=== PATIENT | female | born 2005 | race Caucasian/White ===

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

== ENCOUNTER 2023-06-16 18:25 | Emergency (ER) | payer OTHER, SELFPAY ==
--- NOTE | ~2023-06-16 | CT_ITS ---
EXAMINATION: CT SOFT TISSUE NECK WITH CONTRAST CLINICAL INFORMATION: l tonsil swelling COMPARISON: None. TECHNIQUE: Following the administration of 60 mL of Omnipaque 350 intravenous contrast, helical imaging was performed in the axial plane with generation of coronal and sagittal reformatted images. This CT examination was performed using dose optimization techniques as appropriate, variously including the following: *Automated exposure control. *Adjustment of mA and/or kV according to patient size (this includes techniques or standardized protocols for targeted exams where dose is matched to indication/reason for exam; i.e. extremities or head). *Use of iterative reconstruction technique. DLP: 407 mGy-cm. FINDINGS: Asymmetric enlargement of the left palatine tonsil measuring up to 2.9 x 2.6 by. No evidence of peritonsillar abscess or deep neck space infection. There are prominent soft tissues at the tongue base which partially fill the vallecula Nasopharynx/skull base: The fat planes of the skull base and soft tissues of the nasopharynx are unremarkable. The paranasal sinuses and mastoid air cells are well aerated. The temporomandibular joints are normal. Suprahyoid neck: The oral cavity and bilateral salivary gland tissues are unremarkable. Infrahyoid neck: The hypopharynx and larynx are unremarkable. No aerodigestive tract mass. Thyroid: The thyroid gland is normal. Lymph nodes: There is an enlarged left level 2A cervical lymph node measuring up to 2.0 cm short axis as well as prominent but nonpathologic enlarged bilateral level 2 and level 3 cervical lymph nodes, presumably reactive. Lung apices: The partially visualized lung apices are clear. There is some prominent soft tissue in the anterior superior mediastinum, likely representing thymic tissue. Vascular structures: No hemodynamically significant stenosis, dissection, or occlusion. Osseous structures: The osseous structures are intact without suspicious focal lesion. Other: The imaged portions of the brain parenchyma are unremarkable. CT/CT soft tissue neck w IV con IMPRESSION: 1. Asymmetric enlargement of the left palatine tonsil, compatible with tonsillitis in the acute/infectious setting. No evidence of peritonsillar abscess or deep neck space infection. 2. Enlarged left level 2A cervical lymph node and prominent but nonpathologic enlarged bilateral level 2 and level 3 cervical lymph nodes, presumably reactive. 3. Prominent soft tissues at the tongue base, most likely reflecting lymphoid hyperplasia. Correlate with direct inspection. Please note that in the noninfectious setting, a left tonsillar mass with metastatic lymphadenopathy would appear similar. Correlate with clinical history.
[2023-06-16 19:04] LABS: IDNOW Serial# 08D9AD1C; Strep A Nucleic Acid Positive (Negative)
[2023-06-16 19:06] VITALS: BP 130/79; PULSE 118; RESP 19; TEMP 37.2; O2SAT 99; BMI 32.2
--- NOTE | 2023-06-16 19:12 | ED.GENADULT ---
HPI - General Adult General Chief complaint: Upper Respiratory Symptoms Stated complaint: Sore throat Time Seen by Provider: 06/16/23 21:30 Source: patient and family Mode of arrival: ambulatory Limitations: no limitations History of Present Illness HPI narrative: 17 yo female with hx of recurrent tonsillitis and chronic sore throat told by her doctor to not use listerine comes in with c/o 3 days of worsening symptoms. She denies seeing ENT. No fevers noted. MD complaint: sore throat Onset (ago): day(s) (3) Location: mouth Radiation: non-radiation Severity: moderate Quality: aching Pain Consistency: constant Relieving factors: none Exacerbating factors: other (swallowing) Associated symptoms: denies other symptoms Treatments prior to arrival: none Related Data Previous Rx's ?Medication ?Instructions ?Recorded ibuprofen 600 mg tablet 600 mg PO Q6H PRN pain #20 tabs 07/19/22 amoxicillin 500 mg capsule 500 mg PO BID 10 days #20 caps 06/17/23 Allergies Allergy/AdvReac Type Severity Reaction Status Date / Time No Known Allergies Allergy Verified 06/16/23 19:11 Review of Systems Review of Systems: Constitutional : No Fever, No Chills, No Fatigue ENT/Mouth : pos sore throat, No Rhinorrhea Eyes: No Eye Pain, No Swelling, No Redness Cardiovascular : No Chest Pain, No SOB, No Dyspnea on Exertion Respiratory : No Cough, No Sputum Gastrointestinal : No Nausea, No Vomiting, No Diarrhea, No abdominal Pain Genitourinary : No Dysuria, No Urinary Frequency, No Hematuria, Musculoskeletal : No joint pain, No Myalgias, No Joint Swelling Skin : No Skin Lesions, No rash Neuro : No Weakness, No Numbness, No Dizziness, no Headache Psych : No Anxiety/Panic, No Depression Heme/Lymph: No Bruising, No Bleeding, pos Lymphadenopathy All other systems reviewed and are negative [facility], [facility] Past Medical History Attestation statement: The following information was validated with the patient. Source: old records reviewed Medical History Tonsillitis Social History Social History (Updated 06/16/23 @ 22:01 by Caitlin Hale DO) Patient Tobacco Use Status: Never used Tobacco Advance Directives: No Advance Directives Information Provided: No Do you have a plan to hurt others: No Plan Physical Exam ED Vital Signs: Vital Signs - 24 hr 06/16/23 19:06 06/17/23 00:32 Temperature 99.0 F 98.7 F Pulse Rate 118 H 93 Respiratory Rate 19 16 Blood Pressure 130/79 118/76 Pulse Oximetry 99 99 Oxygen Delivery Method Room Air Room Air BMI result Body Mass Index 32.2 Appearance: Alert. Oriented X3. No acute distress. Eyes: Pupils equal, round and reactive to light. ENT: Pharynx L sided tonsil moderate swelling with exudates uvula is midline normal voice no drooling Neck: Normal inspection. mild L ant cervical lympadenopathy CVS: Normal heart rate and rhythm. Pulses normal. Respiratory: No respiratory distress. Breath sounds normal. Abdomen: Soft and nontender. Skin: Skin warm and dry. Normal skin color. Normal skin turgor. Extremities: No lower extremity edema. No calf ttp Neuro: Oriented X 3. No motor deficit. No sensory deficit. Course Course Course Narrative: This is an RME: Additional HPI, ROS, PE not included below will be deferred to primary provider. 17 yo f presents w/ severe sore throat and difficultly swallowing X 3 days. no sick contacts at home. PCP told her to stop using listernine Medications Administered Discontinued Medications Generic Name Dose Route Start Last Admin Trade Name Freq PRN Reason Stop Dose Admin Dexamethasone Sodium Phosphate 10 mg 06/16/23 19:11 06/16/23 22:13 Dexamethasone Sod Phosphate 10 Mg/Ml Vial IVPUSH 06/16/23 19:12 10 mg ONCE ONE Administration Sodium Chloride 1,000 mls @ 999 mls/hr 06/16/23 21:30 06/16/23 22:06 Ns IV 06/16/23 22:30 999 mls/hr .Q1H1M ONE Administration Ceftriaxone Sodium 2 gm/ 50 mls @ 100 mls/hr 06/16/23 23:50 06/17/23 00:02 Sodium Chloride IV 06/17/23 00:19 100 mls/hr ONCE ONE Administration Iohexol 100 ml 06/16/23 22:51 06/16/23 22:51 Iohexol 350 Mg/Ml 100 Ml Infus..Btl IV 06/16/23 22:52 60 ml ONCE ONE Administration Ketorolac Tromethamine 15 mg 06/16/23 21:30 06/16/23 22:13 Ketorolac Tromethamine 15 Mg/Ml Vial IVPUSH 06/16/23 21:31 15 mg ONCE ONE Administration Medical Decision Making Medical Decision Making [facility] Narrative: 17 yo female with PMH of tonsillitis here with c/o sore throat x 3 days now with L sided tonsil swelling at this time will need labs, strep swab, CT scan for mass/DOOR [employer] and IV steroids/toradol Differential Diagnosis Differential Diagnoses: The differential diagnosis associated with the presentation includes DO[employer], mass, tonsillitis Admission/Observation Consideration of admission/observation: Escalation of care including admission/observation considered feels better no DOOR [employer]OR stable for DC Lab Data [facility] Lab Attestation statement: I reviewed the patient's lab results. 06/16/23 21:51 06/16/23 21:51 Labs: Lab Results 06/16/23 06/16/23 Range/Units 18:46 21:51 WBC 17.0 H (4.8-10.8) X10*3/uL RBC 4.80 (4.20-5.50) X10*6/uL Hgb 11.2 L (12.0-16.0) g/dl Hct 34.3 L (37.0-47.0) % MCV 71.5 L (80.0-98.0) fL MCH 23.3 L (27.0-33.0) pg MCHC 32.7 (31.0-35.0) g/dl RDW 16.8 H (11.0-16.0) % Plt Count 454 H (160-400) X10*3/uL MPV 10.2 (9.4-12.3) fL Immature Gran % (Auto) 0.4 (0.0-0.4) % Neut % (Auto) 80.0 H (45-73) % Lymph % (Auto) 8.1 L (20-40) % [place] % (Auto) 7.0 (2-11) % Eos % (Auto) 4.0 (0-4) % Baso % (Auto) 0.5 (0-2) % Lymph # (Auto) 1.4 (1.2-4.9) X10*3/uL [place] # (Auto) 1.2 (0.1-1.2) X10*3/uL Eos # (Auto) 0.7 H (0.0-0.4) X10*3/uL Baso # (Auto) 0.1 (0.0-0.2) X10*3/uL Abs Immat Gran (auto) 0.07 H (0.00-0.03) X10*3/uL Absolute Neuts (auto) 13.6 H (2.0-8.3) x10*3/uL Absolute Nucleated RBC 0.000 (0.0-0.012) X10*3/uL Nucleated RBC % (auto) 0.0 (0.0-0.2) /100WBC Sodium 138 (135-145) mmol/L Potassium 3.7 (3.3-5.1) mmol/L Chloride 104 (96-108) mmol/L Carbon Dioxide 21 L (22-29) mmol/L Anion Gap 17 (12-20) BUN 10 (9-16) mg/dL Creatinine 0.72 (0.5-1.4) mg/dL Estim Creat Clear Calc 104.0 Estimated GFR > 60 Random Glucose 92 (60-115) mg/dL Calcium 9.9 (8.4-10.2) mg/dL Beta HCG, Quant < 2 mIU/mL Influenza Type A (PCR) NEGATIVE (Negative) Influenza Type B (PCR) NEGATIVE (Negative) RSV RNA Qual (PCR) NEGATIVE (Negative) SARS-CoV-2 RNA (RT-PCR) NEGATIVE (Negative) S. pyogenes GrpA ELVIS Positive A (Negative) Independent Interpretation I performed an independent interpretation of an: CT Scan (no DOOR [employer] SE[employer]ING [employer]OR) Radiology Impression Discussion of test interpretation with radiology: I have reviewed the radiologist's reading. Independent Historian Clinical information obtained from an independent historian. History obtained from or confirmed by: Parent Discharge Plan Discharge Clinical Impression: Acute tonsillitis, Acute streptococcal pharyngitis Patient Disposition: Home, Self-Care Instructions: Strep Throat (ED), Tonsillitis (ED) Additional Instructions: return for worsening symptoms no improvement in 48 hours or any other concerns. finish all antibiotics. Prescriptions: New amoxicillin 500 mg capsule 500 mg PO BID 10 Days Qty: 20 0RF No Action ibuprofen 600 mg tablet 600 mg PO Q6H PRN (Reason: pain) Qty: 20 0RF Stand Alone Forms: Work/School Release Print Language: Mohawk
[2023-06-16 19:51] LABS: Influenza A PCR NEGATIVE (Negative); Influenza B PCR NEGATIVE (Negative); Resp Syncy Virus RNA Qual PCR NEGATIVE (Negative); SARS COV2 PCR INHOUSE NEGATIVE (Negative)
[2023-06-16 21:54] LABS: MANUAL DIFF FLAG NO
[2023-06-16 21:56] LABS: Basophils Absolute Auto 0.1 X10*3/uL (0.0-0.2); Basophils Percent Auto 0.5 % (0-2); Eosinophils Absolute Auto 0.7 X10*3/uL (0.0-0.4); Hematocrit 34.3 % (37.0-47.0); Hemoglobin 11.2 g/dl (12.0-16.0); Imm Gran Abs Auto 0.07 X10*3/uL (0.00-0.03); Imm Gran Pct Auto 0.4 % (0.0-0.4); Lymphocytes Absolute Auto 1.4 X10*3/uL (1.2-4.9); Lymphocytes Percent Auto 8.1 % (20-40); Mean Corpuscular HGB Conc 32.7 g/dl (31.0-35.0); Mean Corpuscular Hemoglobin 23.3 pg (27.0-33.0); Mean Corpuscular Volume 71.5 fL (80.0-98.0); Mean Platelet Volume 10.2 fL (9.4-12.3); Monocytes Absolute Auto 1.2 X10*3/uL (0.1-1.2); Neutrophils Absolute Auto 13.6 x10*3/uL (2.0-8.3); Platelet Count 454 X10*3/uL (160-400); Red Cell Distribution Width 16.8 % (11.0-16.0)
[2023-06-16] MEDS: 0.9 % Sodium Chloride 1,000 ML 999 ML IV (22:06)
[2023-06-16] MEDS: Ketorolac Tromethamine 15 MG/ML VIAL IVPUSH (22:13)
[2023-06-16] MEDS: dexAMETHasone sod phosphate 10 MG/ML VIAL IVPUSH (22:13)
[2023-06-16 22:34] LABS: Anion Gap 17 (12-20); Blood Urea Nitrogen 10 mg/dL (9-16); Calcium 9.9 mg/dL (8.4-10.2); Carbon Dioxide 21 mmol/L (22-29); Chloride 104 mmol/L (96-108); Estimated Glomerular Filt Rate > 60; Glucose Random 92 mg/dL (60-115); HCG Quantitative < 2 mIU/mL; Potassium 3.7 mmol/L (3.3-5.1); Sodium 138 mmol/L (135-145)
[2023-06-16] MEDS: iohexoL 350 MG/ML 100 ML INFUS..BTL IV (22:51)
[2023-06-17] MEDS: cefTRIAXone sodium 2 GM in 0.9 % Sodium Chloride 50 ML IV (00:02)
--- NOTE | 2023-06-17 00:03 | PC.NURSE ---
provider, dee dee loaiza, declined blood cultures
[2023-06-17 00:32] VITALS: BP 118/76; PULSE 93; RESP 16; TEMP 37.1; O2SAT 99
[2023-06-17 00:59] VITALS: BP 118/76; PULSE 93; RESP 16; TEMP 37.1; O2SAT 99
== END 2023-06-17 01:00 | disposition home or self-care (01) ==
PROVIDERS: Physician Assistant; Emergency Provider Emergency Medicine
DX: J02.0 Streptococcal pharyngitis (principal); Z79.899 Other long term (current) drug therapy; Z11.52 Encounter for screening for COVID-19; Z20.822 Contact with and (suspected) exposure to COVID-19
CPT/HCPCS: 0241U; 36415; 70491; 80048; 84702; 85025; 87651; 96374; 96375; 99284; J0696; J1100; J1885; Q9967

== ENCOUNTER 2024-11-10 07:56 | Emergency (ER) | payer OTHER, SELFPAY ==
--- NOTE | ~2024-11-10 | XR_ITS ---
EXAMINATION: XR CHEST CLINICAL INFORMATION: cough COMPARISON: None available. TECHNIQUE: 2 views of the chest were obtained. FINDINGS: The cardiac, hilar, and mediastinal contours are normal. The lungs are clear bilaterally. There is no pneumothorax or pleural effusion. There is no focal osseous or soft tissue abnormality. XR/XR chest 2V IMPRESSION: Normal chest. Electronically signed by: Michele Gorman MD 11/10/2024 09:20 AM EDT
--- NOTE | 2024-11-10 08:10 | ED_ITS ---
HPI - General Adult General Chief complaint: Upper Respiratory Symptoms Stated complaint: swollen tonsils Time Seen by Provider: 11/10/24 08:06 Source: patient Mode of arrival: ambulatory Limitations: no limitations History of Present Illness ED Provider: Lyn Dyer PA-C HPI narrative: Patient is a 19 year old assigned female at with no reported medical history presenting to the emergency department today with a sore throat, swollen tonsils, and a dry cough. Patient states that over the last 2 days she has been having a sore throat, tonsilar pain, and a cough. Patient denies any other complaints at this time. Onset (ago): day(s) (2) Related Data Previous Rx's ?Medication ?Instructions ?Recorded ibuprofen 600 mg tablet 600 mg PO Q6H PRN pain #20 t abs 07/19/22 amoxicillin 500 mg capsule 500 mg PO BID 10 days #20 c aps 06/17/23 amoxicillin 875 mg tablet 875 mg PO BID 10 days #20 ta bs 11/10/24 Allergies Allergy/AdvReac Type Severity Reaction Status Date / Time No Known Allergies Allergy Verified 11/10/24 08:17 Review of Systems Constitutional: Constitutional: Reports as per HPI Eyes: Eyes: Reports as per HPI ENT: Reports as per HPI Cardiovascular: Cardiovascular: Reports as per HPI Respiratory: Respiratory: Reports as per HPI Gastrointestinal: Gastrointestinal: Reports as per HPI Genitourinary: Genitourinary: Reports as per HPI Musculoskeletal: Musculoskeletal: Reports as per HPI Integumentary/Breasts: Skin/Breast: Reports as per HPI Neurologic: Reports as per HPI Psychiatric: Psychiatric: Reports as per HPI Endocrine: Endocrine: Reports as per HPI Hematologic/Lymphatic: Hematologic/Lymphatic: Reports as per HPI Allergic/Immunologic: Allergic/Immunologic: Reports as per HPI [facility] Past Medical History Attestation statement: The following information was validated with the patient. Source: old records reviewed and nursing notes reviewed Medical History Tonsillitis Social History Social History Patient Tobacco Use Status: Never used Tobacco Smoked in Last 30 Days: No Use of substances other than those prescribed or required for medical reasons: No Advance Directives: No Advance Directives Information Provided: Yes Do you have a plan to hurt others: No Plan Patient : No Physical Exam ED Vital Signs: Vital Signs - 24 hr 11/10/24 08:15 11/10/24 08:19 11/10/24 08:19 Temperature 98.2 F 98.2 F Pulse Rate 105 H 105 H Respiratory Rate 18 18 Blood Pressure 129/82 129/82 Pulse Oximetry 97 97 97 Oxygen Delivery Method Room Air Room Air Room Air 11/10/24 09:31 Temperature 0 F L Pulse Rate 107 H Respiratory Rate 18 Blood Pressure 123/84 Pulse Oximetry 100 Oxygen Delivery Method Room Air BMI result Body Mass Index 35.3 Const General: cooperative, no acute distress, alert and awake Nutritional Appearance: well nourished Orientation/consciousness: patient oriented x3 HENMT Head: Yes normal to inspection and Yes atraumatic Ears: hearing grossly normal bilaterally and external ears normal General nose exam: Normal external nose present, no nasal discharge noted and no epistaxis Face and sinus: Yes normal facial exam, No abrasion and No laceration Mouth: Normal oral and palatal mucosa present, no drooling and no muffled voice Throat: Yes uvula midline, Yes abnormal tonsil (left tonsillar exudates, swelling, erythema) and No uvula laterally displaced Eyes General: appearance normal, both eyes and all related structures Periorbital: periorbital findings normal Eyelids: Yes eyelids normal Conjunctivae: conjunctivae normal Pupils: Equal, round and reactive pupils present EOM: EOMs intact bilaterally Neck Neck: Yes normal visual inspection and Yes full ROM Resp Effort & Inspection: normal respiratory effort and able to speak in complete sentences Neuro General: patient oriented x3, moves all extremities and CN's II-XI intact bilaterally Cranial nerves: Yes Equal, round and reactive pupils present Cognition (Neuro): normal cognition Extrem General: Yes normal to inspection, Yes full ROM and Yes capillary refill normal Psych Appearance: grossly normal Mental Status: mental status grossly normal Affect: normal affect Attitude: cooperative Thought process: Normal thought process present Thought content: Normal thought content present Insight: Good insight present (Psych) Medical Decision Making Medical Decision Making MDM Narrative: Patient is a 19 year old assigned female at with no reported medical history presenting to the emergency department today with a sore throat, swollen tonsils, and a dry cough. Patient's physical exam was as noted in the physical exam portion of this note and consistent with pharyngitis. Uvula midline, no shift. Patient's voice normal, not hoarse. Patient's strep, COVID-19, and influenza testing was negative. Patient's chest x-ray showed no acute process. Given patient's physical exam findings - will treat for pharyngitis. I explained my physical exam findings as well as all test results to the patient. I answered all questions asked by the patient. I stressed the importance of the patient taking her medication as directed (either prescribed or as the over the counter packaging recommends). I stressed the importance of the patient following up with her primary care provider. I stressed the importance of the patient returning to the emergency department immediately if her symptoms were to worsen or if she were to develop any dizziness, shortness of breath, difficulty breathing, chest pain, blurry vision, loss of vision, nausea, vomiting, abdominal pain, fever, chills, back pain, or any other complaints. Patient verbalized agreement and understanding with this treatment plan and discharge. Differential Diagnosis Differential Diagnoses: The differential diagnosis associated with the presentation includes Strep pharyngitis COVID-19 Influenza Admission/Observation Consideration of admission/observation: Escalation of care including admission/observation considered Patient would have been admitted to the hospital had her work up had any findings where hospital admission was appropriate and her clinical presentation warranted hospital admission. Lab Data [facility] Lab Attestation statement: I reviewed the patient's lab results. My interpretation of these results are in the [facility] Rationale portion of this note. Labs: Lab Results 11/10/24 Range/Units 08:26 COVID-19 (MARTHA) Negative (Negative) COVID-19 Clin Com See Note Influenza Type A (ELVIS) Negative (Negative) Influenza Type B (ELVIS) Negative (Negative) Influenza A & B Note See Note S. pyogenes GrpA ELVIS Negative (Negative) Independent Interpretation I performed an independent interpretation of an: Plain X-Ray Interpretation: My interpretation is in agreement with the radiologist's impression of this imaging study. Reason for Exam: cough EXAMINATION: XR CHEST CLINICAL INFORMATION: cough COMPARISON: None available. TECHNIQUE: 2 views of the chest were obtained. FINDINGS: The cardiac, hilar, and mediastinal contours are normal. The lungs are clear bilaterally. There is no pneumothorax or pleural effusion. There is no focal osseous or soft tissue abnormality. XR/XR chest 2V IMPRESSION: Normal chest. Electronically signed by: Michele Gorman MD 11/10/2024 09:20 AM EDT RP Dictated By: Michele Gorman MD Signed By: Electronically signed by Michele Gorman MD 11/10/24 0920 Radiology Impression Discussion of test interpretation with radiology: I have reviewed the radiologist's reading. Prescription Management I considered prescription management with: Antibiotic (patient prescribed an antibiotic for pharyngitis) Discharge Plan Discharge Clinical Impression: Pharyngitis Qualifiers: Pharyngitis/tonsillitis etiology: other specified organisms Qualified Code(s): J02.8 - Acute pharyngitis due to other specified organisms Patient Disposition: Home, Self-Care Instructions: Pharyngitis (ED) Additional Instructions: Your COVID-19, influenza, and strep tests were negative however, your exami nation is concerning for pharyngitis (a throat infection). I have prescribed an antibiotic, please take it. THROW AWAY YOUR TOOTHBRUSH AND USE A NEW ONE 24 HOURS AFTER YOU HAVE STARTED THE ANTIBIOTIC. This will help stop recurrence of infection. IF you are prescribed home medications and/or you are taking over the counter medications at home - it is very important you continue to do so as prescribed / directed unless told otherwise. Follow up with a primary care provider. Return to the emergency department immediately if your symptoms worsen or if you develop any numbness, tingling, dizziness, shortness of breath, difficulty breathing, chest pain, blurry vision, loss of vision, nausea, vomiting, abdominal pain, fever, chills, back pain, or any other complaints. If you do not have a primary care provider - call any of the below numbers to establish and follow up with a primary care provider. [facility] Primary [facility] ([place]) [phone] [place] [address] [place], [address] [facility] Primary Care ([address] [place]) [phone] [address] [facility], [address] [place], [address] [facility] Primary Care ([address] [place]) [phone] [place] [address], [address] [place], [address] [facility] Primary Care ([place]) [phone] [place] [address] [address] [facility] [place], [address] [facility] Family Medicine [phone] [address] [facility], [address] Please see the information below about our Patient Portal. If you are not yet enrolled in the [facility] Patient Portal, you will receive an enrollment email invitation following your visit to any [facility] setting. You may also self-enroll in the Patient Portal by visiting our website: [email or web address] The following information is required to access the Patient Portal: - Your [facility] Medical Record Number - Your personal home email address (must match what is in your electronic medical record, Registration staff can assist with this) - Name - Date of Capabilities of the Patient Portal: - Message some providers - View upcoming appointments - Access your health summary, medical history, and visit history - View current conditions and allergies - View procedure and lab results - View your medications, including guidelines, side effects, and precautions - Complete pre-appointment questionnaires requested by your provider - Ready summary reports of your office visits and procedures To access the Patient Portal Mobile Bart, follow these directions: - Search [employer] in the Bart Store or [employer] Store - Download the Bart - Search for [facility] - Enter your login/password Prescriptions: New amoxicillin 875 mg tablet 875 mg PO BID 10 Days Qty: 20 0RF No Action amoxicillin 500 mg capsule 500 mg PO BID 10 Days Qty: 20 0RF ibuprofen 600 mg tablet 600 mg PO Q6H PRN (Reason: pain) Qty: 20 0RF Stand Alone Forms: Work/School Release Interventions: ED Discharge Assessment Last Done: 11/10/24 09:31 Discharge Date/Time: 11/10/24 09:33 Print Language: Spanish
[2024-11-10 08:15] VITALS: BP 129/82; PULSE 105; RESP 18; TEMP 36.8; O2SAT 97; BMI 35.3
[2024-11-10 08:19] VITALS: BP 129/82; PULSE 105; RESP 18; TEMP 36.8; O2SAT 97
--- NOTE | 2024-11-10 08:22 | PC.NURSE ---
19 F presents to ED with swollen tonsils, sore throat, and dry cough since friday. A+Ox4, calm, cooperative. Airway patent, RR even and unlabored, denies CP or SOB. Bilat tonsils inflammed, more on the left side with some white color to them. Pt sts 4/10 throat pain, had n/v yesterday x 1 episode but denies any today. Pt is ambulatory.
[2024-11-10 08:53] LABS: COVID-19 Test Negative (Negative); IDNOW Serial# 08D9AD1C; IDNOW Serial# 55D5AD1C; Strep A Nucleic Acid Negative (Negative)
[2024-11-10 08:54] LABS: IDNOW Serial# 58CA691E; Influenza B2 Negative (Negative)
--- OUTSIDE RECORDS SUMMARY | 2024-11-10 09:28 | XMS_ITS | Clinical Summary ---
Author Organization [employer] Address [address] [place] [address] Care Team Providers Care Small Animal Veterinarian Name Role Phone Unavailable Primary Care Provider Unavailabl e Social History Tobacco Use Types Packs/Day Years Used Date Smoking Tobacco: Never Assessed Comments Unknown Sex and Gender Information Value Date Recorded Sex Assigned at Female 01/23/2024 1:23 PM EST Legal Sex Female 1:21 PM EST Gender Identity Female 01/23/2024 1:23 PM EST Sexual Orientation Not on file Plan of Treatment Health Maintenance Due Date Last Done Comments Chlamydia and Gonorrhea Screening 2003 Depression Screening 2003 HIV Screening 2003 SDOH Screening 2003 Disability Screening 2003 Alcohol/Substance Use Screening 2015 Tobacco Screening 2015 Family Planning (PISQ) 08/27/2018 HPV Vaccines (1 - 3-dose series) 08/27/2018 Meningococcal B Vaccine (1 o f 2 - Standard) 2019 Hepatitis C Screening 08/27/2021 DTaP/Tdap/Td Vaccines (1 - Tdap) 08/27/2022 Hepatitis B Vaccines (1 of 3 - 19+ 3-dose series) 08/27/2022 Pap Smear 08/27/2024 COVID-19 Vaccine (1 - 2023-2 5 season) 2024 Influenza Vaccine (#1) 2024 Zoster Vaccines (1 of 2) 08/27/2053 RSV Patients and Pa tients Aged 60 years or older (1 - 1-dose 75+ series) 08/27/2078 HIB Vaccines Aged Out No longer eligi ble based on patient's age to complete this topic Hepatitis A Vaccines Aged Out No long er eligible based on patient's age to complete this topic IPV Vaccines Aged Out No longer eligi ble based on patient's age to complete this topic Meningococcal Vaccine Aged Out No lydia rakesh eligible based on patient's age to complete this topic Pneumococcal Vaccine: Pediat rics (0 to 5 Years) and At-Risk Patients (6 to 49) Years Aged Out No longer eligible b ased on patient's age to complete this topic RSV under 20 months Aged Out No longe r eligible based on patient's age to complete this topic Rotavirus Vaccines Aged Out No longer eligible based on patient's age to complete this topic Insurance [facility]
[2024-11-10 09:31] VITALS: BP 123/84; PULSE 107; RESP 18; TEMP -17.7; TEMP 0; O2SAT 100
== END 2024-11-10 09:33 | disposition home or self-care (01) ==
PROVIDERS: Physician Assistant Medical; Emergency Provider Emergency Medicine
DX: J02.8 Acute pharyngitis due to other specified organisms (principal); R05.9 Cough, unspecified; Z11.52 Encounter for screening for COVID-19
CPT/HCPCS: 71046; 87502; 87635; 87651; 99283; 99284

== ENCOUNTER → 2024-11-10 08:23 | Outpatient (BNV) | payer OTHER, SELFPAY | PROVIDERS: Emergency Provider Emergency Medicine; Visit Provider Radiology Diagnostic Radiology | DX: R05.9 Cough, unspecified (principal) | CPT/HCPCS: 71046 ==